=== PATIENT | male | born 1960 | race Caucasian/White ===

== ENCOUNTER 2017-06-19 08:22 | Emergency (ER) | payer MEDICARE, MEDICAID ==
[~2017-06-19] VITALS: Ht 185.4 cm; Wt 80.0 kg
[~2017-06-19 08:22] MED LIST: ATOR10 PO; BACT2OIN TOP; CEPH500C3 PO; CYAN100017 PO; DARU800T PO; FOLI400T30 PO; HARVONI PO; LEVEMIR SQ; LEXA10TA PO; METF500 PO; NORV100T PO; NYST100010 PO; NYST500KS PO; RALT400 PO; RITO100 PO; SULF-154 PO; TENO300 PO; VITA100020 PO; [UNRECOGNIZED DRUG - CODE] PO
[2017-06-19 08:24] VITALS: BP 192/96; PULSE 97; RESP 18; TEMP 97.8; O2SAT 97
[2017-06-19] MEDS ORDERED: NYST1000 SWISH-SWAL (08:46)
[2017-06-19] MEDS ORDERED: EMTR1TAB4 PO (08:46)
[2017-06-19] MEDS ORDERED: DOLU1TAB PO (08:46)
[2017-06-19] MEDS ORDERED: ONDA1TAB17 PO (08:46)
[2017-06-19] MEDS ORDERED: BACT800T5 PO (08:46)
[2017-06-19] MEDS ORDERED: AZIT600T PO (08:46)
[2017-06-19] MEDS ORDERED: LEVO500T8 PO (08:46)
--- NOTE | 2017-06-19 08:46 | PD ---
HPI Chief Complaint: Medical Clearance Time Seen by Provider: 08:45 Travel History International Travel<30 days: No Contact w/Intl Traveler<30days: No Traveled to known affect area: No History of Present Illness HPI 57-year-old male came to the emergency room with history of cough, diarrhea that has been going on for past few months. Patient has been diagnosed with AIDS for past 20 years and HIV for almost 30 years. He was started on a new regimen. His CD4 count is very low and viral load high. He is on Bactrim as well as Zithromax for many years. Patient says that lately in spite of the medications as symptoms are worsening and he cannot take care of himself at home. He's been having hard time preparing meals and remembering his medications. Signs are stable. He was answering questions appropriately. Did not appear to be in any significant distress. He has a physician at the HIV clinic that he goes to see. He was told by the physician that if the symptoms worsen he should go to the emergency room. As I was leaving the room patient stressed on the fact that he has been unable to take care of himself at home and has no health. PFSH Past Medical History Narrative Medical List of his past medical, surgical, social and family history as reviewed from the nursing note. Hx Anticoagulant Therapy: No Asthma: Yes Autoimmune Disease: Yes Depression: Yes Heart Rhythm Problems: No Cancer: Yes (per pt he is to have a liver biopsy) Cardiovascular Problems: No High Cholesterol: No Chemotherapy: No Chest Pain: Yes Congestive Heart Failure: No COPD: Yes Cerebrovascular Accident: No Diabetes: No Diminished Hearing: No Endocrine: No GERD: Yes Genitourinary: No Headaches: No Hepatitis: Yes Hiatal Hernia: No Immune Disorder: Yes (HIV) Musculoskeletal: No Neurologic: No Psychiatric: No Reproductive: No Respiratory: No Immunizations Current: Yes Renal Failure: No Seizures: No Sleep Apnea: No Thyroid Disease: No Ulcer: No Past Surgical History Abdominal Surgery: No Cardiac Surgery: No Endocrine Surgery: No Genitourinary Surgery: No Gynecologic Surgery: No Thoracic Surgery: No Social History Alcohol Use: Yes Tobacco Use: Yes Substance Use: Yes Allergies-Medications (Allergen,Severity, Reaction): Coded Allergies: No Known Allergies (Unverified , 06/19/17) Comments List of his allergies reviewed from the nursing note. Reported Meds & Prescriptions Reported Meds & Active Scripts Active Reported Descovy (Emtricitabine-Tenofovir Alafenamide) 200-25 mg Tab 1 Tab PO DAILY Ondansetron (Ondansetron HCl) 8 Mg Tab 8 Mg PO TID PRN Nystatin Liq 100,000 unit/ml Susp 5 Ml SWISH-SWAL QID Azithromycin 600 Mg Tab 1,200 Mg PO Q7D Levofloxacin 500 Mg Tablet 500 Mg PO DAILY Bactrim DS (Sulfamethoxazole-Trimethoprim) 800-160 Mg Tab 1 Tab PO DAILY Tivicay (Dolutegravir Sodium) 50 Mg Tab 50 Mg PO DAILY Narrative Medication List of his home medications reviewed from the nursing note. Review of Systems Except as stated in HPI: all other systems reviewed are Neg Physical Exam Narrative GENERAL: Awake, alert, no obvious distress SKIN: Focused skin assessment warm/dry. HEAD: Atraumatic. Normocephalic. EYES: Pupils equal and round. No scleral icterus. No injection or drainage. ENT: No nasal bleeding or discharge. Mucous membranes pink and moist. NECK: Trachea midline. No JVD. CARDIOVASCULAR: Regular rate and rhythm. No murmur appreciated. RESPIRATORY: No accessory muscle use. Clear to auscultation. Breath sounds equal bilaterally. GASTROINTESTINAL: Abdomen soft, non-tender, nondistended. Hepatic and splenic margins not palpable. MUSCULOSKELETAL: No obvious deformities. No clubbing. No cyanosis. No edema. NEUROLOGICAL: Awake and alert. No obvious cranial nerve deficits. Motor grossly within normal limits. Normal speech. PSYCHIATRIC: Appropriate mood and affect; insight and judgment normal. Data Data Last Documented VS Vital Signs Date Time Temp Pulse Resp B/P Pulse Ox O2 Delivery O2 Flow Rate FiO2 06/19/17 13:16 72 18 137/80 98 Room Air 06/19/17 08:24 97.8 Orders Complete Blood Count With Diff (06/19/17 09:11) Comprehensive Metabolic Panel (06/19/17 09:11) Urinalysis - C+S If Indicated (06/19/17 09:11) Iv Access Insert/Monitor (06/19/17 09:11) Ecg Monitoring (06/19/17 09:11) Oximetry (06/19/17 09:11) Sodium Chloride 0.9% Flush (Ns Flush) (06/19/17 09:15) Ldh Serum (06/19/17 09:11) Chest, Single Ap (06/19/17 ) Cryptosporidium (Stool) (06/19/17 09:11) C Diff Toxin Pcr (06/19/17 09:11) Psych Screen (06/19/17 13:02) Drug Screen, Random Urine (06/19/17 13:49) Labs Laboratory Tests Test 06/19/17 06/19/17 09:10 11:25 White Blood Count 3.3 TH/MM3 Red Blood Count 4.00 MIL/MM3 Hemoglobin 14.1 GM/DL Hematocrit 40.8 % Mean Corpuscular Volume 102.0 FL Mean Corpuscular Hemoglobin 35.3 PG Mean Corpuscular Hemoglobin 34.7 % Concent Red Cell Distribution Width 13.5 % Platelet Count 99 TH/MM3 Mean Platelet Volume 8.8 FL Neutrophils (%) (Auto) 48.7 % Lymphocytes (%) (Auto) 36.3 % Monocytes (%) (Auto) 13.4 % Eosinophils (%) (Auto) 1.1 % Basophils (%) (Auto) 0.5 % Neutrophils # (Auto) 1.6 TH/MM3 Lymphocytes # (Auto) 1.2 TH/MM3 Monocytes # (Auto) 0.4 TH/MM3 Eosinophils # (Auto) 0.0 TH/MM3 Basophils # (Auto) 0.0 TH/MM3 CBC Comment AUTO DIFF Differential Comment AUTO DIFF CONFIRMED Platelet Estimate LOW Platelet Morphology Comment NORMAL Sodium Level 132 MEQ/L Potassium Level 3.8 MEQ/L Chloride Level 99 MEQ/L Carbon Dioxide Level 26.6 MEQ/L Anion Gap 6 MEQ/L Blood Urea Nitrogen 11 MG/DL Creatinine 1.05 MG/DL Estimat Glomerular Filtration 73 ML/MIN Rate Random Glucose 273 MG/DL Calcium Level 8.6 MG/DL Total Bilirubin 0.5 MG/DL Aspartate Amino Transf 94 U/L (AST/SGOT) Alanine Aminotransferase 77 U/L (ALT/SGPT) Alkaline Phosphatase 84 U/L Lactate Dehydrogenase 231 U/L Total Protein 8.1 GM/DL Albumin 3.3 GM/DL Urine Color YELLOW Urine Turbidity CLEAR Urine pH 7.0 Urine Specific [place] 1.015 Urine Protein NEG mg/dL Urine Glucose (UA) 300 mg/dL Urine Ketones NEG mg/dL Urine Occult Blood NEG Urine Nitrite NEG Urine Bilirubin NEG Urine Urobilinogen LESS THAN 2.0 MG/DL Urine Leukocyte Esterase NEG Urine RBC 1 /hpf Urine WBC LESS THAN 1 /hpf Urine Mucus FEW /lpf Microscopic Urinalysis Comment CULT NOT INDICATED Stool C. difficile Toxin (PCR) NEGATIVE Stl C. difficile Toxin PRESUMPTIVE Epiderm 027 NEGATIVE Urine Opiates Screen NEG Urine Barbiturates Screen NEG Urine Amphetamines Screen NEG Urine Benzodiazepines Screen NEG Urine Cocaine Screen NEG Urine Cannabinoids Screen NEG MDM Medical Decision Making Medical Screen Exam Complete: Yes Emergency Medical Condition: Yes Medical Record Reviewed: Yes Differential Diagnosis AIDS-related illness, cryptosporidium, pneumonia Narrative Course 1:46 PM blood test results of back and patient has leukopenia which could be related to his HIV/AIDS. Rest of his blood test results are within normal limits. Chest x-rays within normal limit. He did give a stool sample and its negative for C. difficile colitis. Cryptosporidium is pending. Patient has increase glucose and his blood test and upon asking he said that his doctor to get off the diabetes medications. I asked him to follow up with his primary care and would require to be started back on the medication for his diabetes. However at that point he said he could not go back home since he was having hard time taking care of himself and this time he mentioned that he has been having suicidal thoughts. Based on this I have asked for a psych consult. Patient has been positive for cocaine in the past. However he told me that the last time he is cocaine was 6 months ago. I have ordered a urine drug screen as well. Awaiting for the psych screen. Procedures EKG Prior to Arrival: No Diagnosis Primary Impression: Generalized weakness Additional Impression: Hyperglycemia Leticia Mora MD Jun 19, 2017 08:46
[2017-06-19 08:54] VITALS: BP 157/81; PULSE 84; RESP 25; O2SAT 97
[2017-06-19] MEDS ORDERED: SODIUM CHLORIDE 0.9% FLUSH 10 ML FLUSH IV FLUSH PRN (09:15)
[2017-06-19 09:34] LABS: AUTOMATED NEUTROPHIL # 1.6 TH/MM3 (1.8-7.7); BASOPHIL % 0.5 % (0.0-2.0); EOSINOPHIL % 1.1 % (0.0-4.0); HEMATOCRIT 40.8 % (39.0-51.0); LYMPH % 36.3 % (9.0-44.0); LYMPHOCYTE # 1.2 TH/MM3 (1.0-4.8); MEAN CORPUSCULAR HEMOGLOBIN 35.3 PG (27.0-34.0); MEAN CORPUSCULAR HGB CONC 34.7 % (32.0-36.0); MONO % 13.4 % (0.0-8.0); NEUT % 48.7 % (16.0-70.0); PLATELET COUNT 99 TH/MM3 (150-450); RED CELL DISTRIBUTION WIDTH 13.5 % (11.6-17.2); WHITE BLOOD COUNT 3.3 TH/MM3 (4.0-11.0)
--- NOTE | 2017-06-19 09:37 | RADRPT ---
EXAM DATE/TIME: 06/19/2017 09:23 [facility] COMPARISON: WRIST LEFT LIMITED (AP & LAT), December 31, 2015, 21:09. INDICATIONS : Difficulty breathing. MEDICAL HISTORY : HIV SURGICAL HISTORY : None. ENCOUNTER: Initial ACUITY: 2 weeks PAIN SCORE: 0/10 LOCATION: Bilateral chest FINDINGS: A single view of the chest demonstrates the lungs to be symmetrically aerated without evidence of mas s, infiltrate or effusion. The cardiomediastinal contours are unremarkable. Osseous structures are intact. CONCLUSION: 1. No acute cardiopulmonary findings. Timothy Avalos MD on June 19, 2017 at 9:36 Board Certified Radiologist. This report was verified electronically.
[2017-06-19 09:38] LABS: HEMO FLAGS AUTO DIFF
[2017-06-19 09:52] LABS: ALT (GPT) 77 U/L (12-78)
[2017-06-19 09:57] LABS: ALKALINE PHOSPHATASE 84 U/L (45-117); ANION GAP 6 MEQ/L (5-15); AST (GOT) 94 U/L (15-37); BICARBONATE 26.6 MEQ/L (21.0-32.0); BLOOD UREA NITROGEN 11 MG/DL (7-18); CHLORIDE 99 MEQ/L (98-107); GLOMERULAR FILTRATION RATE 73 ML/MIN (>89); LDH SERUM 231 U/L (87-241); POTASSIUM 3.8 MEQ/L (3.5-5.1); SODIUM (NA) 132 MEQ/L (136-145); TOTAL BILIRUBIN ADULT 0.5 MG/DL (0.2-1.0)
[2017-06-19 10:25] LABS: PLATELET ESTIMATE SMEAR LOW (NORMAL); PLATELET MORPHOLOGY NORMAL (NORMAL); SCAN/DIFF AUTO DIFF CONFIRMED
[2017-06-19 12:14] LABS: BLOOD, URINE NEG (NEG); COMMENT (UR) CULT NOT INDICATED; CULTURE IF INDICATED CULT NOT INDICATED; GLUCOSE,URINE 300 mg/dL (NEG); KETONE, URINE NEG (NEG); MUCUS URINE FEW /lpf (OCC); NITRITE,URINE NEG (NEG); URINE COLOR YELLOW (YELLW/STRAW)
[2017-06-19 13:16] VITALS: BP 137/80; PULSE 72; RESP 18; O2SAT 98
[2017-06-19 13:28] LABS: C. DIFF EPI 027 PRESUMPTIVE NEGATIVE (NEGATIVE)
--- NOTE | 2017-06-19 16:36 | PD ---
History of Present Illness Chief Complaint: Medical Clearance Time Seen by Provider: 16:05 Travel History International Travel<30 Days: No Contact w/Intl Traveler<30days: No Known affected area: No Legal Status Legal Status: Voluntary History of Present Illness: History of Present Illness HPI 57-year-old male on a voluntary status with record history of adjustment disorder, substance use disorder who came to the emergency room with history of cough, diarrhea that has been going on for past few months. He was started on a new regimen for treatment of his AIDS. Patient says that lately in spite of the medications his symptoms are worsening and he cannot take care of himself at home. He's been having hard time preparing meals and remembering his medications. As the ED provider was leaving his room and was getting ready for him to be discharged he said he could not go back home since he was having hard time taking care of himself and this time he mentioned that he has been having suicidal thoughts and was feeling feeling depressed. EMR was reviewed. The patient was admitted to [facility] psychiatric unit in 2016 under the care of Dr. Cleary. At that time the patient was using substances and reported feeling depressed. He also reported stressors including his mother in a group home, him having lost his job as well as having lost his section 8 housing. The patient is seen with Nurse Shukri. Patient is alert and oriented male who is dressed in hospital gown. He is maintaining hygiene. He is calm, engaging and cooperative. Speech is clear and within normal limits for tone , rate and volume. His affect is appropriate. There is no indiction that he is responding to internal stimuli. No objective clinical symptoms of depression . He does not appear internally preoccupied. Denies any hallucinatory process. He states he has contemplate suicide in the past but has no plan. Interesting when I ask him regarding his recent stressors he states " My mother is in a group home, I can't work anymore due to pain in my feet and I just lost my section 8 housing. His expectations and goals for the future are as follows; to get rid of my pneumonia, adjust to my new regime, to move to [facility] so that he can be closer to health and social media developer such as those provided at [facility]. , to move his mother closer to him from the group home that she currently resides in and to continue his treatment for his AIDS. In terms of psychiatric treatment he is currently not in treatment and did not continue with medications after he was discharged. PFSH Past Medical History Hx Anticoagulant Therapy: No Asthma: Yes Autoimmune Disease: Yes (AIDS) Depression: Yes Heart Rhythm Problems: No Cancer: Yes (per pt he is to have a liver biopsy) Cardiovascular Problems: No High Cholesterol: No Chemotherapy: No Chest Pain: Yes Congestive Heart Failure: No COPD: Yes Cerebrovascular Accident: No Diabetes: No Diminished Hearing: No Endocrine: No GERD: Yes Genitourinary: No Headaches: No Hepatitis: Yes Hiatal Hernia: No Immune Disorder: Yes (AIDS) Musculoskeletal: No Neurologic: No Psychiatric: No Reproductive: No Respiratory: No Immunizations Current: Yes Renal Failure: No Seizures: No Sleep Apnea: No Thyroid Disease: No Ulcer: No Past Surgical History Surgical History: No Previous Surgery Abdominal Surgery: No Cardiac Surgery: No Endocrine Surgery: No Genitourinary Surgery: No Gynecologic Surgery: No Thoracic Surgery: No Psychiatric History Psychiatric History Hx Psychiatric Treatment: Patient reports only seeing a therapist about 3 years ago, but does not remember name. Was admitted to [facility] in 2016 under the care of Dr. Cleary History of Inpatient Treatment: No Guns or firearms in home: No Social History Moved from [place] 3 years ago. Single. has worked as a plumber's assistant. Lives by himself Hx Alcohol Use: No Hx Tobacco Use: Yes (1-2/ day) Hx Substance Use: No Substance Use Type: Alcohol Other Substances Used: Past use of substances Hx of Substance Use Treatment: No Family Psychiatric History None reported Allergies-Medications (Allergen,Severity, Reaction): Coded Allergies: No Known Allergies (Unverified , 06/19/17) Reported Meds & Prescriptions Reported Meds & Active Scripts Active Reported Descovy (Emtricitabine-Tenofovir Alafenamide) 200-25 mg Tab 1 Tab PO DAILY Ondansetron (Ondansetron HCl) 8 Mg Tab 8 Mg PO TID PRN Nystatin Liq 100,000 unit/ml Susp 5 Ml SWISH-SWAL QID Azithromycin 600 Mg Tab 1,200 Mg PO Q7D Levofloxacin 500 Mg Tablet 500 Mg PO DAILY Bactrim DS (Sulfamethoxazole-Trimethoprim) 800-160 Mg Tab 1 Tab PO DAILY Tivicay (Dolutegravir Sodium) 50 Mg Tab 50 Mg PO DAILY Review of Systems Constitutional: COMPLAINS OF: Weight loss Endocrine: COMPLAINS OF: Heat/cold intolerance Eyes: DENIES: Blurred vision, Diplopia, Eye inflammation, Eye pain, Vision loss , Photosensitivity, Double Vision Gastrointestinal: COMPLAINS OF: Diarrhea, Nausea, Vomiting Psychiatric: COMPLAINS OF: Depression Exam Alert: Yes Graff: Person (ox4) Mood: Calm Affect: Appropriate Speech: Clear, Logical Eye Contact: Normal Memory Intact: Comment (No impairmetn) Hallucinations: Other (Negative) Delusions: No Suicidal: Ideation (Deneis any) Homicidal: Ideation (Deneis any) Insight/Judgement Fair. Not impaired. MDM Medical Decision Making Medical Record Reviewed: Yes Assessment/Plan 57-year-old male on a voluntary status with record history of adjustment disorder, substance use disorder who came to the emergency room with history of cough, diarrhea that has been going on for past few months. After he was being discharged he requested a psychiatric evaluation as he reported feeling depressed as well as suicidal. Patient was evaluated and was not found to be significantly depressed or anxious, not psychotic as well as not suicidal. He is future oriented and has goals including to move to this area. He is provided supportive interventions. [facility]. Does not meet criteria. Not suicdal or homicidal. Recommend outpatient treatment Cleared form psychiatry for discharge. Orders Complete Blood Count With Diff (06/19/17 09:11) Comprehensive Metabolic Panel (06/19/17 09:11) Urinalysis - C+S If Indicated (06/19/17 09:11) Iv Access Insert/Monitor (06/19/17 09:11) Ecg Monitoring (06/19/17 09:11) Oximetry (06/19/17 09:11) Sodium Chloride 0.9% Flush (Ns Flush) (06/19/17 09:15) Ldh Serum (06/19/17 09:11) Chest, Single Ap (06/19/17 ) Cryptosporidium (Stool) (06/19/17 09:11) C Diff Toxin Pcr (06/19/17 09:11) Psych Screen (06/19/17 13:02) Drug Screen, Random Urine (06/19/17 13:49) Diet Regular Basic (06/19/17 Dinner) Results Vital Signs Date Time Temp Pulse Resp B/P Pulse Ox O2 Delivery O2 Flow Rate FiO2 06/19/17 13:16 72 18 137/80 98 Room Air 06/19/17 08:54 84 25 157/81 97 Room Air 06/19/17 08:24 97.8 97 18 192/96 97 Laboratory Tests Test 06/19/17 06/19/17 09:10 11:25 White Blood Count 3.3 Red Blood Count 4.00 Hemoglobin 14.1 Hematocrit 40.8 Mean Corpuscular Volume 102.0 Mean Corpuscular Hemoglobin 35.3 Mean Corpuscular Hemoglobin 34.7 Concent Red Cell Distribution Width 13.5 Platelet Count 99 Mean Platelet Volume 8.8 Neutrophils (%) (Auto) 48.7 Lymphocytes (%) (Auto) 36.3 Monocytes (%) (Auto) 13.4 Eosinophils (%) (Auto) 1.1 Basophils (%) (Auto) 0.5 Neutrophils # (Auto) 1.6 Lymphocytes # (Auto) 1.2 Monocytes # (Auto) 0.4 Eosinophils # (Auto) 0.0 Basophils # (Auto) 0.0 CBC Comment AUTO DIFF Differential Comment AUTO DIFF CONFIRMED Platelet Estimate LOW Platelet Morphology Comment NORMAL Sodium Level 132 Potassium Level 3.8 Chloride Level 99 Carbon Dioxide Level 26.6 Anion Gap 6 Blood Urea Nitrogen 11 Creatinine 1.05 Estimat Glomerular Filtration 73 Rate Random Glucose 273 Calcium Level 8.6 Total Bilirubin 0.5 Aspartate Amino Transf 94 (AST/SGOT) Alanine Aminotransferase 77 (ALT/SGPT) Alkaline Phosphatase 84 Lactate Dehydrogenase 231 Total Protein 8.1 Albumin 3.3 Urine Color YELLOW Urine Turbidity CLEAR Urine pH 7.0 Urine Specific [place] 1.015 Urine Protein NEG Urine Glucose (UA) 300 Urine Ketones NEG Urine Occult Blood NEG Urine Nitrite NEG Urine Bilirubin NEG Urine Urobilinogen LESS THAN 2.0 Urine Leukocyte Esterase NEG Urine RBC 1 Urine WBC LESS THAN 1 Urine Mucus FEW Microscopic Urinalysis Comment CULT NOT INDICATED Stool C. difficile Toxin (PCR) NEGATIVE Stl C. difficile Toxin PRESUMPTIVE Epiderm 027 NEGATIVE Urine Opiates Screen NEG Urine Barbiturates Screen NEG Urine Amphetamines Screen NEG Urine Benzodiazepines Screen NEG Urine Cocaine Screen NEG Urine Cannabinoids Screen NEG Date/Time Procedure Status Source Growth 06/19/17 11:25 Cryptosporidium Exam - Final Complete Stool Stool NEGATIVE - NO CRYPTOSPORIDIUM ANTIGEN... Diagnosis Primary Impression: Generalized weakness Additional Impressions: Hyperglycemia Adjustment disorder Psychiatrically Cleared: Yes Med/ Other Pt Specific Info: No Meds Exist/No RX given Disposition: 01 DISCHARGE HOME Condition: Stable Problem Qualifiers Additional Impressions: Adjustment disorder Qualified Code: F43.23 - Adjustment disorder with mixed anxiety and depressed mood Ary Galicia Jun 19, 2017 16:35
== END 2017-06-19 17:45 | disposition home or self-care (01) ==
LOC: NEPC 08:22
DX: R53.1 Weakness (principal); R73.9 Hyperglycemia, unspecified; F43.23 Adjustment disorder with mixed anxiety and depressed mood; R19.7 Diarrhea, unspecified; R05 Cough; D72.819 Decreased white blood cell count, unspecified; B20 Human immunodeficiency virus [HIV] disease; Z72.0 Tobacco use; Z79.899 Other long term (current) drug therapy; Z87.09 Personal history of other diseases of the respiratory system; Z86.59 Personal history of other mental and behavioral disorders; Z87.19 Personal history of other diseases of the digestive system
CPT/HCPCS: 71010; 80053; 80307; 81001; 83615; 85025; 87328; 87493; 99284

== ENCOUNTER 2017-11-11 12:07 | Emergency (ER) | payer MEDICAID, MEDICARE ==
[~2017-11-11] VITALS: Ht 185.4 cm; Wt 79.0 kg
[~2017-11-11 12:07] MED LIST changes: -ATOR10 PO; +AZIT600T PO; -BACT2OIN TOP; +BACT800T5 PO; -CEPH500C3 PO; -CYAN100017 PO; -DARU800T PO; +DOLU1TAB PO; +EMTR1TAB4 PO; -FOLI400T30 PO; -HARVONI PO; -LEVEMIR SQ; +LEVO500T8 PO; -LEXA10TA PO; -METF500 PO; -NORV100T PO; +NYST1000 SWISH-SWAL; -NYST100010 PO; -NYST500KS PO; +ONDA8TAB7 PO; -RALT400 PO; -RITO100 PO; -SULF-154 PO; -TENO300 PO; -VITA100020 PO; -[UNRECOGNIZED DRUG - CODE] PO
[2017-11-11 12:08] VITALS: BP 134/65; PULSE 86; RESP 26; TEMP 98.2; O2SAT 99
[2017-11-11 12:12] VITALS: RESP 20
--- NOTE | 2017-11-11 12:43 | PD ---
HPI Chief Complaint: Fall Time Seen by Provider: 12:32 Travel History International Travel<30 days: No Contact w/Intl Traveler<30days: No Traveled to known affect area: No History of Present Illness HPI This patient complains of injury to his left lower rib cage suffered from a fall. 2 hours ago his mother fell on top of him. He fell backwards and caught his left low ribs on a wheelchair. He has pain. It's worse with movement or deep breath. Duration 2 hours. Severity is moderate PFSH Past Medical History Hx Anticoagulant Therapy: No Asthma: Yes Autoimmune Disease: Yes (AIDS) Depression: Yes Heart Rhythm Problems: No Cancer: Yes (per pt he is to have a liver biopsy) Cardiovascular Problems: No High Cholesterol: No Chemotherapy: No Chest Pain: Yes Congestive Heart Failure: No COPD: Yes Cerebrovascular Accident: No Diabetes: No Diminished Hearing: No Endocrine: No GERD: Yes Genitourinary: No Headaches: No Hepatitis: Yes Hiatal Hernia: No Immune Disorder: Yes (AIDS) Musculoskeletal: No Neurologic: No Psychiatric: No Reproductive: No Respiratory: No Immunizations Current: Yes Renal Failure: No Seizures: No Sleep Apnea: No Thyroid Disease: No Ulcer: No Past Surgical History Abdominal Surgery: No Cardiac Surgery: No Endocrine Surgery: No Genitourinary Surgery: No Gynecologic Surgery: No Thoracic Surgery: No Social History Alcohol Use: No Tobacco Use: Yes (1-2/ day) Substance Use: No Allergies-Medications (Allergen,Severity, Reaction): Coded Allergies: No Known Allergies (Unverified , 06/19/17) Reported Meds & Prescriptions Reported Meds & Active Scripts Active Tramadol (Tramadol HCl) 50 Mg Tab 50 Mg PO Q6H PRN Reported Descovy (Emtricitabine-Tenofovir Alafenamide) 200-25 mg Tab 1 Tab PO DAILY Tivicay (Dolutegravir Sodium) 50 Mg Tab 50 Mg PO DAILY Review of Systems General / Constitutional: No: Fever Respiratory: No: Cough Gastrointestinal: No: Vomiting Genitourinary: No: Nocturia Physical Exam Narrative GENERAL: Well-nourished, well-developed patient with rib pain . SKIN: Focused skin assessment reveals no rash and nodules. Skin is Warm and dry. HEAD: Atraumatic. Normocephalic. EYES: Pupils equal and round. No scleral icterus. No injection or drainage. ENT: No nasal bleeding or discharge. Mucous membranes pink and moist. NECK: Trachea midline. No JVD. No midline tenderness CARDIOVASCULAR: Regular rate and rhythm. No murmur appreciated. RESPIRATORY: No accessory muscle use. Clear to auscultation. Breath sounds equal bilaterally. GASTROINTESTINAL: Abdomen soft, non-tender, nondistended. Hepatic and splenic margins not palpable. MUSCULOSKELETAL: No obvious deformities. No clubbing. No cyanosis. No edema. Patient has a lot of tenderness to the last rib in the left low back. No bruising or crepitus NEUROLOGICAL: Awake and alert. No obvious cranial nerve deficits. Motor grossly within normal limits. Normal speech. PSYCHIATRIC: Appropriate mood and affect; insight and judgment normal. Data Data Last Documented VS Vital Signs Date Time Temp Pulse Resp B/P (MAP) Pulse Ox O2 Delivery O2 Flow Rate FiO2 11/11/17 12:12 20 11/11/17 12:08 98.2 86 99 Orders Orders Chest, Single Ap (11/11/17 ) Ketorolac Inj (Toradol Inj) (11/11/17 12:45) [facility] Medical Decision Making Medical Screen Exam Complete: Yes Emergency Medical Condition: Yes Medical Record Reviewed: Yes Differential Diagnosis Rib fracture, contusion, muscle strain Narrative Course I have reviewed the patient's electronic medical record. I reviewed his chest x-ray which is normal I gave him Toradol injection. He is driving. Patient looks clinically improved upon recheck. Tramadol written. Diagnosis Primary Impression: Contusion of rib on left side Qualified Codes: S20.212A - Contusion of left front wall of thorax, initial encounter Additional Instructions: The patient was advised to follow up with their physician and return if they worsen. The patient was warned about potential sedation for the medications they will receive on prescription. Med/Other Pt SpecificInfo: Prescription(s) given Scripts Tramadol (Tramadol) 50 Mg Tab 50 MG PO Q6H Y for PAIN, #20 TAB 0 Refills Prov: Demarco Friedman MD 11/11/17 Disposition: 01 DISCHARGE HOME Condition: Stable Demarco Friedman MD Nov 11, 2017 12:43
[2017-11-11] MEDS ORDERED: KETOROLAC TROMETHAMINE 60 MG/2 ML (IM) VIAL IM ONE (12:45)
--- NOTE | 2017-11-11 13:30 | RADRPT ---
EXAM DATE/TIME: 11/11/2017 12:48 [facility] COMPARISON: CHEST SINGLE AP, June 19, 2017, 9:23. INDICATIONS : Cough with left lower posterior rib pain. MEDICAL HISTORY : HIV. SURGICAL HISTORY : None. ENCOUNTER: Initial ACUITY: 1 day PAIN SCORE: 10/10 LOCATION: Bilateral chest FINDINGS: A single view of the chest demonstrates the lungs to be symmetrically aerated without evidence of mas s, infiltrate or effusion. The cardiomediastinal contours are unremarkable. Osseous structures are intact. CONCLUSION: No acute disease. Jairo Zuñiga MD on November 11, 2017 at 13:28 Board Certified Radiologist. This report was verified electronically.
[2017-11-11] MEDS ORDERED: TRAM50TA PO (15:27)
== END 2017-11-11 15:41 | disposition home or self-care (01) ==
LOC: NEPD 12:07
DX: S20.212A Contusion of left front wall of thorax, initial encounter (principal); B20 Human immunodeficiency virus [HIV] disease; J45.909 Unspecified asthma, uncomplicated; J44.9 Chronic obstructive pulmonary disease, unspecified; K21.9 Gastro-esophageal reflux disease without esophagitis; F32.9 Major depressive disorder, single episode, unspecified; F17.200 Nicotine dependence, unspecified, uncomplicated; W18.00XA Striking against unspecified object with subsequent fall, initial encounter; Z86.19 Personal history of other infectious and parasitic diseases
CPT/HCPCS: 71045; 96372; 99284; J1885